=== PATIENT | male | born 1985 ===

== ENCOUNTER 2018-05-22 00:35 | Emergency (ER) | payer MEDICAID, OTHER ==
[~2018-05-22] VITALS: Ht 172.7 cm; Wt 81.6 kg
[2018-05-22] MEDS ORDERED: EPINEPHrine HCL 1 MG/10 ML SYRG IV ONE (00:40)
[2018-05-22] MEDS ORDERED: SODIUM CHLORIDE 0.9% 3,000 ML IV ONE (01:00)
[2018-05-22] MEDS ORDERED: cefTRIAXone 1GM/50ML D5W 50 ML IV ONE (01:00)
[2018-05-22] MEDS ORDERED: SUCCINYLCHOLINE CHLORIDE 20 MG/ML 10ML VIAL IV ONE (01:00)
[2018-05-22] MEDS ORDERED: ETOMIDATE (2MG/ML) 20ML VIAL IV ONE (01:00)
[2018-05-22] MEDS ORDERED: MIDAZOLAM HCL 5 MG/ML-1ML VIAL IV ONE (01:00)
[2018-05-22] MEDS ORDERED: DEXAMETHASONE SOD PHOS 10MG/1ML VIAL INJ ONE (01:32)
[2018-05-22] MEDS ORDERED: phytonadione 2 ML ONE (01:42)
[2018-05-22] MEDS ORDERED: PHYTONADIONE (VIT K)10 MG/ML 1ML VIAL SUBCUT ONE (01:45)
[2018-05-22 02:15] VITALS: BP 93/58
== END 2018-05-22 02:29 | disposition short-term general hospital (02) ==
LOC: EDBD 00:35 → ER 00:39
DX: S11.91XA Laceration without foreign body of unspecified part of neck, initial encounter (principal); G92 Toxic encephalopathy; F10.920 Alcohol use, unspecified with intoxication, uncomplicated; X78.1XXA Intentional self-harm by knife, initial encounter; Y93.89 Activity, other specified; Y99.8 Other external cause status; Y92.89 Other specified places as the place of occurrence of the external cause
CPT/HCPCS: 12002; 31500; 36430; 71045; 86900; 86901; 86920; 96374; 96375; 99291; J0171; J1100; J3430; P9016